=== PATIENT | female | born 1960 | race Caucasian/White ===

== ENCOUNTER → 2017-09-29 16:46 | Outpatient (CLI) | payer BC ==
[2011-06-23 13:42] VITALS: BMI 15.5
== END | disposition home or self-care (01) ==
LOC: D.MAMMO 14:30
DX: Z12.31 Encounter for screening mammogram for malignant neoplasm of breast (principal)

== ENCOUNTER → 2018-11-08 22:21 | Outpatient (CLI) | payer BC ==
[2011-06-23 13:42] VITALS: BMI 15.5
== END | disposition home or self-care (01) ==
LOC: D.MAMMO 15:00
DX: Z12.31 Encounter for screening mammogram for malignant neoplasm of breast (principal)

== ENCOUNTER 2019-10-04 09:00 | Outpatient (CLI) | payer BC ==
[2011-06-23 13:42] VITALS: BMI 15.5
== END 2019-10-04 10:00 | disposition home or self-care (01) ==
LOC: D.MAMMO 09:00
PROVIDERS: ATTEND Family Medicine
DX: Z12.31 Encounter for screening mammogram for malignant neoplasm of breast (principal)